=== PATIENT | male | born 1965 | race Caucasian/White ===

== ENCOUNTER → 2019-05-14 11:58 | Outpatient (BNVA) | payer MEDICAID, SELFPAY | PROVIDERS: Family Provider Physician Assistant Medical; Visit Provider Psychiatry & Neurology Psychiatry | DX: F33.42 Major depressive disorder, recurrent, in full remission (principal); G31.84 Mild cognitive impairment of uncertain or unknown etiology; G47.33 Obstructive sleep apnea (adult) (pediatric) | CPT/HCPCS: 99213 ==

== ENCOUNTER → 2019-08-04 08:20 | Outpatient (BNVA) | payer MEDICAID, SELFPAY | PROVIDERS: Family Provider Physician Assistant Medical; Visit Provider Psychiatry & Neurology Psychiatry | DX: F33.42 Major depressive disorder, recurrent, in full remission (principal); G31.84 Mild cognitive impairment of uncertain or unknown etiology; G47.33 Obstructive sleep apnea (adult) (pediatric) | CPT/HCPCS: 99213 ==

== ENCOUNTER → 2020-02-07 07:44 | Outpatient (BNVA) | payer MEDICAID, SELFPAY | PROVIDERS: Family Provider Physician Assistant Medical; Visit Provider Psychiatry & Neurology Psychiatry | DX: F33.42 Major depressive disorder, recurrent, in full remission (principal); G47.33 Obstructive sleep apnea (adult) (pediatric); G31.84 Mild cognitive impairment of uncertain or unknown etiology | CPT/HCPCS: 99213 ==

== ENCOUNTER → 2020-05-01 07:36 | Outpatient (BNVA) | payer MEDICAID, SELFPAY | PROVIDERS: Family Provider Physician Assistant Medical; Visit Provider Psychiatry & Neurology Psychiatry | DX: G47.33 Obstructive sleep apnea (adult) (pediatric) (principal); F33.42 Major depressive disorder, recurrent, in full remission; G31.84 Mild cognitive impairment of uncertain or unknown etiology | CPT/HCPCS: 99213 ==

== ENCOUNTER → 2020-07-26 07:34 | Outpatient (BNVA) | payer MEDICAID, SELFPAY | PROVIDERS: Family Provider Physician Assistant Medical; Visit Provider Psychiatry & Neurology Psychiatry | DX: F33.42 Major depressive disorder, recurrent, in full remission (principal); G31.84 Mild cognitive impairment of uncertain or unknown etiology; G47.33 Obstructive sleep apnea (adult) (pediatric) | CPT/HCPCS: 99213 ==

== ENCOUNTER → 2020-11-28 07:16 | Outpatient (BNVA) | payer MEDICAID, SELFPAY | PROVIDERS: Family Provider Physician Assistant Medical; Visit Provider Psychiatry & Neurology Psychiatry | DX: F33.42 Major depressive disorder, recurrent, in full remission (principal); G31.84 Mild cognitive impairment of uncertain or unknown etiology; G47.33 Obstructive sleep apnea (adult) (pediatric) | CPT/HCPCS: 99213 ==

== ENCOUNTER → 2021-02-15 07:23 | Outpatient (BNVA) | payer MEDICAID, SELFPAY | PROVIDERS: Family Provider Physician Assistant Medical; Visit Provider Psychiatry & Neurology Psychiatry | DX: F33.42 Major depressive disorder, recurrent, in full remission (principal); G31.84 Mild cognitive impairment of uncertain or unknown etiology; G47.33 Obstructive sleep apnea (adult) (pediatric) | CPT/HCPCS: 99213 ==

== ENCOUNTER → 2021-05-17 08:44 | Outpatient (BNVA) | payer MEDICAID, SELFPAY | PROVIDERS: Family Provider Physician Assistant Medical; Visit Provider Psychiatry & Neurology Psychiatry | DX: F33.42 Major depressive disorder, recurrent, in full remission (principal); G31.84 Mild cognitive impairment of uncertain or unknown etiology; G47.33 Obstructive sleep apnea (adult) (pediatric) | CPT/HCPCS: 99214 ==

== ENCOUNTER 2022-05-15 12:08 | Outpatient (CLI) | payer MEDICAID, SELFPAY ==
--- NOTE | 2022-05-15 12:15 | USCV_ITS ---
Jason Nicolas Age: 56 Gender: M : 1965 Exam Date: 05/15/2022 13:26 Ordering Phys: Minnie Cottrell Technologist: Sakshi Briggs Exam Location: [facility] [place] Indication: edema, elevated neuro peptide levels BP: 138 / 88 HR: 55 Rhythm: Sinus Technical Quality: Adequate MEASUREMENTS (Male / Female) Normal Values 2D ECHO LV Diastolic Diameter PLAX 3.9 cm 4.2 - 5.9 / 3.9 - 5.3 cm LV Systolic Diameter PLAX 2.2 cm IVS Diastolic Thickness 1.1 cm 0.6 - 1.0 / 0.6 - 0.9 cm IVS Systolic Thickness 1.4 cm LVPW Diastolic Thickness 1.1 cm 0.6 - 1.0 / 0.6 - 0.9 cm LVPW Systolic Thickness 2.1 cm LVOT Diameter 2.1 cm LV Ejection Fraction 2D Teich 76.6 % LV Ejection Fraction MOD 2C 64.0 % LV Ejection Fraction 2C AL 63.4 % LA Diameter 3.7 cm LA Width 2.8 cm LA Height 4.9 cm RA Width 2.6 cm RA Height 3.3 cm Aorta at Sinotubular Diameter 2.7 cm M-MODE MV E Point Septal Separation 0.7 cm DOPPLER AV Peak Velocity 132.0 cm/s LVOT Peak Velocity 96.0 cm/s AV Area Cont Eq vti 2.0 cm squared AV Area Cont Eq pk 2.5 cm squared MV Peak Velocity 95.0 cm/s MV Area PHT 3.9 cm squared Mitral E to A Ratio 0.7 MV E' Velocity 36.5 cm/s Mitral E to MV E' Ratio 11.6 Mitral E to LV E' Lateral Ratio 9.6 Mitral E to LV E' Septal Ratio 15.0 TR Peak Velocity 112.3 cm/s TR Peak Gradient 5.0 mmHg Right Atrial Pressure 3.0 mmHg Pulmonary Artery Systolic Pressu 8.0 mmHg PV Peak Velocity 82.0 cm/s RV Acceleration Time 0.1 s RV Ejection Time 0.3 s RV AcT/ET 0.2 FINDINGS Left Ventricle Normal left ventricular size, systolic function and wall thickness, with no regional wall motion abnormalities. Left ventricular ejection fraction is estimated at 60 %. Grade I/IV diastolic dysfunction (abnormal relaxation filling pattern), normal to mildly elevated filling pressures. Right Ventricle The right ventricle is normal in size and function. Right Atrium The right atrium is normal in size. Left Atrium The left atrium is normal in size. Mitral Valve Structurally normal mitral valve without significant stenosis or prolapse. There is no mitral regurgitation. Aortic Valve Aortic valve sclerosis without stenosis. Trace aortic regurgitation. Tricuspid Valve Structurally normal tricuspid valve without significant stenosis or regurgitation. Pulmonary artery systolic pressure is normal. Pulmonic Valve Structurally normal pulmonic valve without significant stenosis. There is no pulmonic regurgitation. Pericardium Normal pericardium without effusion. Aorta Normal ascending aorta dimension. IVC The inferior vena cava appears normal. CONCLUSIONS 1-Normal left ventricular size, systolic function and wall thickness, with no regional wall motion abnormalities. Left ventricular ejection fraction is estimated at 60 %. Grade I/IV diastolic dysfunction (abnormal relaxation filling pattern), normal to mildly elevated filling pressures. 2-No significant valve abnormalities. 3-There is no pericardial effusion. 4-Right atrial pressure is around 5 mm of mercury. Henry Sanon MD (Electronically Signed) Final Date: 15 May 2022 17:35 S
== END 2022-05-15 12:09 | disposition home or self-care (01) ==
LOC: RAD 12:11
PROVIDERS: PCP Nurse Practitioner Family; Visit Provider Nurse Practitioner Family
DX: R79.89 Other specified abnormal findings of blood chemistry (principal)
CPT/HCPCS: 93306

== ENCOUNTER → 2023-04-21 13:49 | Outpatient (BNVA) | payer MEDICARE, MEDICAID, SELFPAY | PROVIDERS: PCP Nurse Practitioner Family; Referring Provider Nurse Practitioner Family; Visit Provider Specialist | DX: M17.12 Unilateral primary osteoarthritis, left knee | CPT/HCPCS: 20610; 73560; 73565; 99204; J1100; J2795; J3301 ==

== ENCOUNTER → 2023-07-21 13:56 | Outpatient (BNVA) | payer MEDICARE, SELFPAY | PROVIDERS: PCP Nurse Practitioner Family; Visit Provider Specialist | DX: M17.12 Unilateral primary osteoarthritis, left knee (principal) | CPT/HCPCS: 99213 ==

== ENCOUNTER 2023-08-28 07:56 | Outpatient (CLI) | payer MEDICARE, MEDICAID, SELFPAY ==
--- NOTE | 2023-08-28 07:59 | MR_ITS ---
WS: [id number] LEFT knee MR arthrogram (pre and post contrast imaging). HISTORY: LEFT knee pain. History of multiple prior surgeries. COMPARISON: 08/05/2023. Prearthrogram imaging: Mild thinning of the ACL and mucoid degeneration but no full-thickness tear. N ormal PCL. Slight displacement of the MCL from the joint line by extruded medial meniscus and osteoph yte. Mild MCL sprain. There is fluid in the central MCL above the joint line. Slight displacement of the posterior lateral corner structures by osteophyte also. Horizontal tear posterior horn medial meniscus. There is additional abnormal signal throughout a larg e portion of the posterior horn lateral meniscus. Blunting of the free edge involves a large portion of the meniscus. Additional globular signal in the peripheral meniscus extending into the root. Advanced tricompartment osteoarthritic changes. Loss of cartilage, narrowing of the joint spaces and osteophytosis. There is a small amount of marrow edema along the weightbearing surface medial femoral condyle. Large osteophytes in the central knee extending into the intracondylar notch. Moderate narr owing of the proximal tibiofibular articulation with a small fluid collection which may be a ganglion or bursal distention. Very small suprapatellar joint effusion. Small Ellis's cyst. Post arthrogram imaging: Good contrast distention of the knee joint. No loose bodies identified. Juliano entified are bilateral tears involving the posterior horns of the medial and lateral meniscus. No def inite contrast extending into the tear of the medial discus. There is a large amount of contrast fill ing the tear is the posterior horn lateral meniscus. There is severe loss of cartilage in the lateral compartment and more moderate of the medial compartment. ACL is intact. Patellar cartilage intact. MR/MR knee LT wo/w con [id number] IMPRESSION: 1. Complex tear posterior horn lateral meniscus involving the free edge and ext ending into the meniscal root. Meniscal tear is a distended with injected contr ast. 2. Horizontal tear posterior horn medial meniscus is reidentified as seen on . This meniscal tear does not distend with contrast. 3. Severe loss of cartilage and joint space narrowing lateral compartment with lesser arthritic changes in the medial compartment. 4. Small Ellis's cyst. 5. No ACL tear. 6. Mild medial MCL sprain. 7. Large osteophytes extend into the intercondylar notch.
--- NOTE | 2023-08-28 08:00 | IR_ITS ---
WS: [id number] LEFT KNEE ARTHROGRAM (FLUOROSCOPY) LEFT knee arthrogram was performed in fluoroscopy prior to MRI evaluation. HISTORY: Chronic knee pain. COMPARISON: None. FLUOROSCOPY TIME: 0min [id number] # of spot films: 2 Procedure, risks and complications were explained to the patient. Complications include but not limit ed to bleeding, infection and contrast reaction. Current medications are reviewed. Skin is cleansed with ChloraPrep. Skin is anesthetized with 1% buffered lidocaine. 22-gauge needle is inserted into the LEFT suprapatellar joint. Approximately 30 cc of gadolinium mixture injected witho ut complication. Patient will proceed to MRI evaluation immediately. No complications were encountered. Patient is instructed to watch for post procedure infection or ble eding. Patient is also instructed to contact the radiology department with any concerns. Hypertrophic osteophytes along the joint line, greatest laterally. Joint spaces are narrowed. IR/[place] [id number] IMPRESSION: Uncomplicated LEFT suprapatellar knee joint injection prior to MRI arthrogram. Tricompartment osteoarthritis with marginal osteophytes.
[2023-08-28] MEDS: gadobenate dimeglumine 20 mL vial 0.200000000000000011 ML IV (09:11)
[2023-08-28] MEDS: iohexol 240 mg/mL 50 mL Btl 15 ML INTRA-ARTI (09:11)
== END 2023-08-28 07:57 | disposition home or self-care (01) ==
LOC: RAD 07:56
PROVIDERS: PCP Nurse Practitioner Family; Visit Provider Specialist
DX: M17.12 Unilateral primary osteoarthritis, left knee (principal); M25.762 Osteophyte, left knee; M23.222 Derangement of posterior horn of medial meniscus due to old tear or injury, left knee; M71.22 Synovial cyst of popliteal space [Baker], left knee; M23.252 Derangement of posterior horn of lateral meniscus due to old tear or injury, left knee
CPT/HCPCS: 11721; 27369; 73723; 77002; 99203; A9577; Q9966